=== PATIENT | female | born 1995 | race Caucasian/White ===

== ENCOUNTER 2017-11-24 10:46 | Emergency (ER) | payer MEDICAID ==
[~2017-11-24] VITALS: Ht 162.6 cm; Wt 50.0 kg
[~2017-11-24 10:46] MED LIST: IBUP-1985 PO
[2017-11-24 11:24] LABS: URINE HCG NEGATIVE (NEG)
[2017-11-24 11:29] LABS: CLARITY,URINE Cloudy (Clear); COLOR,URINE Yellow (Yellow); GLUCOSE, URINE Negative (Neg); KETONES,URINE Negative (Neg); LEUKOCYTE ESTERASE ,URINE Trace (Neg); NITRITES, URINE Negative (Neg); OCCULT BLOOD,URINE Negative (Neg); PH,URINE 7.5 (4.8-8.0); PROTEIN,URINE Negative (Neg); UROBILINOGEN,URINE 0.2 E.U/dL (0.2-1.0)
[2017-11-24 11:34] LABS: UA COLLECTION TYPE CLN CATCH MIDSTREAM
[2017-11-24 11:35] LABS: BACTERIA,URINE FEW /HPF (Neg); MUCUS STRANDS FEW /LPF (Neg); RBC,URINE NONE SEEN /HPF (0-2); SQUAMOUS EPITHELIAL CELL,UR MANY /LPF (FEW); WBC,URINE 0-4 /HPF (0-4)
[2017-11-24 12:47] VITALS: BP 101/70
[2017-11-24 13:12] LABS: HCG SERUM QL POSITIVE
== END 2017-11-24 12:49 | disposition home or self-care (01) ==
LOC: ER 10:47
DX: Z02.89 Encounter for other administrative examinations (principal); O99.321 Drug use complicating pregnancy, first trimester; F15.10 Other stimulant abuse, uncomplicated; F12.10 Cannabis abuse, uncomplicated; Z88.2 Allergy status to sulfonamides; Z3A.12 12 weeks gestation of pregnancy
CPT/HCPCS: 36415; 81001; 81025; 84702; 84703; 99284

== ENCOUNTER 2019-07-03 13:05 | Emergency (ER) | payer MEDICAID ==
[~2019-07-03] VITALS: Ht 160 cm; Wt 47.0 kg
[2019-07-03 13:08] VITALS: BP 133/91
[2019-07-03] MEDS ORDERED: penicillin V potassium 500mg tablet PO ONE (13:20)
[2019-07-03] MEDS ORDERED: HYDROcodone/acetaminophen 10/325mg tab PO ONE (13:20)
[2019-07-03] MEDS ORDERED: IBUP-1986 PO (13:20)
[2019-07-03] MEDS ORDERED: HYDR-4353 PO (13:20)
[2019-07-03] MEDS ORDERED: PENI500T2 PO (13:21)
== END 2019-07-03 13:40 | disposition home or self-care (01) ==
LOC: ER 13:05
DX: K04.7 Periapical abscess without sinus (principal); F12.90 Cannabis use, unspecified, uncomplicated; F15.90 Other stimulant use, unspecified, uncomplicated; Z88.2 Allergy status to sulfonamides; Z79.899 Other long term (current) drug therapy
CPT/HCPCS: 99283

== ENCOUNTER 2019-10-20 16:18 | Emergency (ER) | payer MEDICAID ==
[~2019-10-20] VITALS: Ht 157.5 cm; Wt 45.0 kg
[~2019-10-20 16:18] MED LIST changes: +IBUP-1986 PO
[2019-10-20 16:24] VITALS: BP 128/95
[2019-10-20] MEDS ORDERED: ibuprofen tablet 400 MG TABLET PO ONE (16:50)
[2019-10-20] MEDS ORDERED: HYDROcodone/acetaminophen 5mg/325mg tablet PO ONE (16:50)
[2019-10-20] MEDS ORDERED: AMOX-580 PO (16:56)
[2019-10-20] MEDS ORDERED: IBUP-1985 PO (16:59)
[2019-10-20] MEDS ORDERED: amox tr/potassium clavulanate 875/125mg TAB PO ONE (17:00)
== END 2019-10-20 17:19 | disposition home or self-care (01) ==
LOC: ER 16:18
DX: K02.9 Dental caries, unspecified (principal); F12.90 Cannabis use, unspecified, uncomplicated; F15.90 Other stimulant use, unspecified, uncomplicated; Z88.2 Allergy status to sulfonamides; Z79.2 Long term (current) use of antibiotics; Z79.899 Other long term (current) drug therapy
CPT/HCPCS: 99284

== ENCOUNTER 2020-06-02 11:40 | Emergency (ER) | payer MEDICAID ==
[~2020-06-02] VITALS: Ht 162.6 cm; Wt 55.0 kg
[2020-06-02 12:10] VITALS: BP 120/79
[2020-06-02] MEDS ORDERED: acetaminophen 325mg tablet PO ONE (12:45)
[2020-06-02] MEDS ORDERED: PENI500T2 PO (12:48)
[2020-06-02] MEDS ORDERED: CHLO473M3 PO (12:48)
== END 2020-06-02 12:58 | disposition home or self-care (01) ==
LOC: ER 11:40
DX: O26.892 Other specified pregnancy related conditions, second trimester (principal); O99.322 Drug use complicating pregnancy, second trimester; K04.7 Periapical abscess without sinus; R22.0 Localized swelling, mass and lump, head; F12.90 Cannabis use, unspecified, uncomplicated; F15.90 Other stimulant use, unspecified, uncomplicated; Z3A.24 24 weeks gestation of pregnancy; Z72.89 Other problems related to lifestyle; Z88.2 Allergy status to sulfonamides; Z79.2 Long term (current) use of antibiotics; Z79.899 Other long term (current) drug therapy
CPT/HCPCS: 99283

== ENCOUNTER 2021-01-26 14:01 | Emergency (ER) | payer MEDICAID ==
[~2021-01-26] VITALS: Ht 162.6 cm; Wt 50.0 kg
[~2021-01-26 14:01] MED LIST changes: +CHLO473M3 PO
[2021-01-26 14:46] LABS: BASOPHILS # (AUTO) 0.1 X10'3 (0-0.2); BASOPHILS % (AUTO) 0.9 % (0-1); EOSINOPHILS # (AUTO) 0.4 X10'3 (0-0.9); EOSINOPHILS % (AUTO) 2.6 % (0-6); HEMATOCRIT 37.8 % (35.0-45.0); HEMOGLOBIN 12.6 g/dl (12.0-16.0); LYMPHOCYTES # (AUTO) 2.7 X10'3 (1.1-4.8); LYMPHOCYTES % (AUTO) 19.5 % (21-51); MEAN CORPUSCULAR HEMOGLOBIN 30.4 PG (27.0-31.0); MEAN CORPUSCULAR HGB CONC 33.2 g/dL (33.0-36.5); MEAN CORPUSCULAR VOLUME 91.5 FL (78-98); MEAN PLATELET VOLUME 7.5 FL (7.4-10.4); MONOCYTES % (AUTO) 7.2 % (2-12); NEUTROPHILS # (AUTO) 9.7 X10'3 (1.8-7.7); NEUTROPHILS % (AUTO) 69.8 % (42-75); PLATELET COUNT 485 X10'3 (140-440); RED BLOOD COUNT 4.13 X10'6 (4.20-5.60); RED CELL DISTRIBUTION WIDTH 14.1 % (11.5-14.5); WHITE BLOOD COUNT 13.9 X10'3 (4.5-11.0)
[2021-01-26 14:50] LABS: URINE HCG NEGATIVE (NEG)
[2021-01-26 15:01] LABS: ALANINE AMINOTRANSFERASE 16 U/L (12-78); ALBUMIN 3.3 G/DL (3.4-5.0); ALBUMIN/GLOBULIN RATIO 0.7 (1.1-1.5); ALKALINE PHOSPHATASE 74 IU/L (46-116); ANION GAP 10 (8-16); ASPARTATE AMINO TRANSFERASE 12 U/L (10-37); BILIRUBIN,TOTAL 0.5 MG/DL (0.1-1.0); BLOOD UREA NITROGEN 10 MG/DL (7-18); BUN/CREATININE RATIO 11.2 (6.6-38.0); CALCIUM 9.3 MG/DL (8.5-10.1); CHLORIDE 103 MMOL/L (99-107); CREATININE 0.89 MG/DL (0.40-0.90); GLUCOSE 74 MG/DL (70-104); LIPASE 59 U/L (73-393); SODIUM 140 MMOL/L (135-145); TOTAL CARBON DIOXIDE 26.9 MMOL/L (24-32); eGFR 76 ML/MIN
[2021-01-26 15:01] LABS: CLARITY,URINE SLIGHTLY CLOUDY (Clear); COLOR,URINE YELLOW (Yellow); GLUCOSE, URINE NEGATIVE (Neg); KETONES,URINE NEGATIVE (Neg); LEUKOCYTE ESTERASE ,URINE NEGATIVE (Neg); NITRITES, URINE NEGATIVE (Neg); OCCULT BLOOD,URINE TRACE-INTACT (Neg); PROTEIN,URINE NEGATIVE (Neg)
[2021-01-26] MEDS ORDERED: morphine 4 MG/ML inj SYRINge IV PRN (15:20)
[2021-01-26] MEDS ORDERED: normal saline 1000ML IV soln IVB ONE (15:20)
[2021-01-26] MEDS ORDERED: ondansetron/PF 4mg/2ml inj IV ONE (15:20)
[2021-01-26 15:30] LABS: UA COLLECTION TYPE CLN CATCH MIDSTREAM
[2021-01-26 15:35] LABS: BACTERIA,URINE 1+ /HPF (Neg); MUCUS STRANDS MANY /LPF (Neg); RBC,URINE 0-2 /HPF (0-2); SQUAMOUS EPITHELIAL CELL,UR MODERATE /LPF (FEW); WBC,URINE 0-4 /HPF (0-4)
[2021-01-26] MEDS ORDERED: iohexol 300mg/ml 100ml inj. ONE (16:17)
[2021-01-26] MEDS ORDERED: CIPR-259 PO (17:14)
[2021-01-26] MEDS ORDERED: ONDA4TAB6 PO (17:14)
[2021-01-26] MEDS ORDERED: HYDR-3965 PO (17:14)
[2021-01-26 17:29] VITALS: BP 111/73
== END 2021-01-26 17:30 | disposition home or self-care (01) ==
LOC: ER 14:01
DX: K52.9 Noninfective gastroenteritis and colitis, unspecified (principal); F12.90 Cannabis use, unspecified, uncomplicated; F15.90 Other stimulant use, unspecified, uncomplicated; F17.200 Nicotine dependence, unspecified, uncomplicated; Z72.89 Other problems related to lifestyle; Z88.2 Allergy status to sulfonamides; Z79.2 Long term (current) use of antibiotics; Z79.899 Other long term (current) drug therapy
CPT/HCPCS: 36415; 74177; 80053; 81001; 81025; 83690; 85025; 96361; 96374; 96375; 99285; J2270; J2405; J7030; Q9967

== ENCOUNTER 2021-10-09 16:34 | Emergency (ER) | payer MEDICAID ==
[~2021-10-09] VITALS: Ht 162.6 cm; Wt 47.5 kg
[~2021-10-09 16:34] MED LIST changes: +ONDA4TAB6 PO
[2021-10-09 17:08] VITALS: BP 136/93
[2021-10-10] MEDS ORDERED: CLIN-142 PO (00:43)
== END 2021-10-09 20:58 | disposition left against medical advice (07) ==
LOC: ER 16:36
DX: Z53.21 Procedure and treatment not carried out due to patient leaving prior to being seen by health care provider (principal)

== ENCOUNTER 2021-10-09 20:51 | Emergency (ER) | payer MEDICAID, OTHER ==
[~2021-10-09] VITALS: Ht 162.6 cm; Wt 48.6 kg
[2021-10-09 21:23] VITALS: BP 152/84
[2021-10-10] MEDS ORDERED: CLIN-142 PO (00:43)
[2021-10-10] MEDS: clindamycin 150mg capsule PO ONE (02:17)
[2021-10-10] MEDS: oxyCODONE/APAP 5-325mg tablet PO ONE (02:18)
== END 2021-10-10 02:29 | disposition home or self-care (01) ==
LOC: ER 20:54
DX: K04.7 Periapical abscess without sinus (principal); F12.10 Cannabis abuse, uncomplicated; F15.10 Other stimulant abuse, uncomplicated; Z88.2 Allergy status to sulfonamides
CPT/HCPCS: 99283; 99284